=== PATIENT | male | born 1990 | race Caucasian/White ===

== ENCOUNTER 2019-11-06 10:26 | Emergency (ER) | payer OTHER ==
[~2019-11-06] VITALS: Ht 193 cm; Wt 73.9 kg
[2019-11-06 10:43] VITALS: BP 123/87
--- NOTE | 2019-11-06 11:06 | NUR ---
xray in room at this time.
--- NOTE | 2019-11-06 12:09 | NUR ---
Patient given discharge instructions and they have confirmed that they understand the instructions. Patient ambulatory with steady gait.
== END 2019-11-06 12:10 | disposition home or self-care (01) ==
LOC: ED 11:50
DX: S90.121A Contusion of right lesser toe(s) without damage to nail, initial encounter (principal); W19.XXXA Unspecified fall, initial encounter; Y93.89 Activity, other specified; Y92.828 Other wilderness area as the place of occurrence of the external cause; Y99.8 Other external cause status
CPT/HCPCS: 99283

== ENCOUNTER 2019-12-12 15:48 | Emergency (ER) | payer OTHER ==
[~2019-12-12] VITALS: Ht 193 cm; Wt 76.0 kg
[2019-12-12 15:49] VITALS: BP 140/85
== END 2019-12-12 17:18 | disposition home or self-care (01) ==
LOC: ED 16:22
DX: S01.81XD Laceration without foreign body of other part of head, subsequent encounter (principal); Z48.02 Encounter for removal of sutures; X58.XXXD Exposure to other specified factors, subsequent encounter
CPT/HCPCS: 99281